=== PATIENT | female | born 1985 | race Asian ===

== ENCOUNTER 2017-02-06 15:57 | Inpatient (IN) | payer BC ==
[~2017-02-06] VITALS: Ht 160 cm; Wt 54.0 kg
[2017-02-06 16:48] LABS: BASOPHIL % 0.4 % (0-2); RED CELL DISTRIBUTION WIDTH 12.5 % (11.5-14.5)
[2017-02-06 16:49] LABS: CALCIUM 9.2 mg/dL (8.5-10.1); CARBON DIOXIDE 22.4 mmol/L (21-32); CHLORIDE SERUM 101 mmol/L (98-107); CREATININE SERUM 0.8 mg/dL (0.6-1.0); GFR1 > 60 mL/min; GLUCOSE SERUM 91 mg/dL (74-106); PLATELET COUNT 433 x10^3mcL (130-400); POTASSIUM SERUM 3.6 mmol/L (3.5-5.1); SODIUM SERUM 139 mmol/L (136-145)
[2017-02-06] MEDS ORDERED: PRENATAL LOW IR1 TA1 PO (23:14)
[2017-02-07 01:01] LABS: CHOLESTEROL/HDL RATIO 3.3; MAGNESIUM 1.8 mg/dL (1.8-2.4); PHOSPHOROUS 2.4 mg/dL (2.5-4.9)
[2017-02-07 01:09] LABS: FREE T4 1.11 ng/dL (0.76-1.46); T4(THYROXINE) 9.6 ug/dL (4.7-13.3)
[2017-02-07 01:11] LABS: T3 TOTAL 1.15 ng/mL
[2017-02-07 05:00] LABS: BASOPHIL % 0.9 % (0-2); PLATELET COUNT 307 x10^3mcL (130-400); RED CELL DISTRIBUTION WIDTH 12.6 % (11.5-14.5)
[2017-02-07 05:17] LABS: CALCIUM 8.3 mg/dL (8.5-10.1); CARBON DIOXIDE 24.1 mmol/L (21-32); CHLORIDE SERUM 109 mmol/L (98-107); CREATININE SERUM 0.8 mg/dL (0.6-1.0); GFR1 > 60 mL/min; GLUCOSE SERUM 90 mg/dL (74-106); PHOSPHOROUS 3.6 mg/dL (2.5-4.9); POTASSIUM SERUM 3.7 mmol/L (3.5-5.1); SODIUM SERUM 142 mmol/L (136-145)
[2017-02-07 06:54] VITALS: BP 107/66
[2017-02-07 08:25] VITALS: BP 104/59
[2017-02-07 12:40] VITALS: BP 114/66
[2017-02-07 13:31] LABS: APPEARANCE CSF CLEAR; COLOR CSF COLORLESS; RBC CSF 3 /cumm (0); WBC CSF 16 /cumm (0-5)
[2017-02-07 13:32] LABS: LYMPHOCYTE CSF 96 % (40-80); MONOCYTE CSF 1 %; TOTAL PROTEIN CSF 51.1 mg/dL (15-45)
[2017-02-07 13:34] LABS: APPEARANCE CSF CLEAR; COLOR CSF COLORLESS; LYMPHOCYTE CSF 96 % (40-80); RBC CSF 3 /cumm (0); WBC CSF 10 /cumm (0-5)
[2017-02-07 13:35] LABS: MONOCYTE CSF 1 %
[2017-02-07 13:35] LABS: UA SPECIFIC GRAVITY 1.015 (1.005-1.035)
[2017-02-07 13:36] LABS: microscopic required? YES; urine erythrocyte NEGATIVE (NEGATIVE)
[2017-02-07 13:39] LABS: TOTAL PROTEIN, SERUM 8.9 g/dL (6.4-8.2)
[2017-02-07 13:40] LABS: ALBUMIN 3.9 g/dL (3.4-5.0); ALKALINE PHOSPHATASE 114 U/L (46-116); ALT/SGPT 39 U/L (14-59); AST/SGOT 37 U/L (15-37); BILIRUBIN TOTAL 0.42 mg/dL (0.20-1.00)
[2017-02-07 17:45] VITALS: BP 127/67
[2017-02-07 18:12] VITALS: BP 127/67
[2017-02-07 21:54] VITALS: BP 122/68
[2017-02-08 06:08] VITALS: BP 110/70
[2017-02-08 07:45] LABS: BASOPHIL % 0.3 % (0-2); PLATELET COUNT 297 x10^3mcL (130-400); RED CELL DISTRIBUTION WIDTH 12.1 % (11.5-14.5)
[2017-02-08 08:00] LABS: CALCIUM 8.1 mg/dL (8.5-10.1); CARBON DIOXIDE 18.8 mmol/L (21-32); CHLORIDE SERUM 106 mmol/L (98-107); CREATININE SERUM 0.7 mg/dL (0.6-1.0); GFR1 > 60 mL/min; GLUCOSE SERUM 76 mg/dL (74-106); SODIUM SERUM 137 mmol/L (136-145)
[2017-02-08 09:56] VITALS: BP 114/73
[2017-02-08 13:51] VITALS: BP 110/76
[2017-02-08 17:50] VITALS: BP 118/78
[2017-02-08 21:19] VITALS: BP 129/71
[2017-02-09 05:45] VITALS: BP 133/69
[2017-02-09 06:36] LABS: CALCIUM 8.5 mg/dL (8.5-10.1); CARBON DIOXIDE 21.1 mmol/L (21-32); CHLORIDE SERUM 105 mmol/L (98-107); CREATININE SERUM 0.7 mg/dL (0.6-1.0); GFR1 > 60 mL/min; GLUCOSE SERUM 83 mg/dL (74-106); POTASSIUM SERUM 3.7 mmol/L (3.5-5.1); SODIUM SERUM 138 mmol/L (136-145)
[2017-02-09 07:05] LABS: BASOPHIL % 0.4 % (0-2); PLATELET COUNT 324 x10^3mcL (130-400); RED CELL DISTRIBUTION WIDTH 12.6 % (11.5-14.5)
[2017-02-09 10:13] VITALS: BP 122/65
[2017-02-09 13:48] VITALS: BP 125/77
[2017-02-09 18:37] VITALS: BP 126/80
[2017-02-09 22:05] VITALS: BP 132/80
[2017-02-10 05:36] VITALS: BP 106/66
[2017-02-10 06:43] LABS: BASOPHIL % 0.7 % (0-2); PLATELET COUNT 312 x10^3mcL (130-400); RED CELL DISTRIBUTION WIDTH 12.6 % (11.5-14.5)
[2017-02-10 07:02] LABS: CALCIUM 8.2 mg/dL (8.5-10.1); CARBON DIOXIDE 24.5 mmol/L (21-32); CHLORIDE SERUM 108 mmol/L (98-107); CREATININE SERUM 0.7 mg/dL (0.6-1.0); GFR1 > 60 mL/min; GLUCOSE SERUM 84 mg/dL (74-106); MAGNESIUM 1.8 mg/dL (1.8-2.4); PHOSPHOROUS 3.6 mg/dL (2.5-4.9); POTASSIUM SERUM 3.7 mmol/L (3.5-5.1); SODIUM SERUM 140 mmol/L (136-145)
[2017-02-10 10:00] VITALS: BP 107/69
[2017-02-10] MEDS ORDERED: MOT400 PO (12:58)
[2017-02-10 13:22] VITALS: BP 107/69
[2017-02-10 13:23] VITALS: BP 107/69
== END 2017-02-10 17:21 | disposition home or self-care (01) | DRG 75 ==
LOC: ED 15:57 → DU 19:53 → MU 19:53 → DU 02-07 00:05 → MU 02-09 08:58
PROVIDERS: Emergency Medicine; Family Medicine; ADMIT Family Medicine
DX: A87.9 Viral meningitis, unspecified (principal); N17.0 Acute kidney failure with tubular necrosis; Z88.2 Allergy status to sulfonamides; Z88.8 Allergy status to other drugs, medicaments and biological substances; Z83.3 Family history of diabetes mellitus; Z82.49 Family history of ischemic heart disease and other diseases of the circulatory system; E83.39 Other disorders of phosphorus metabolism; E78.5 Hyperlipidemia, unspecified; R73.03 Prediabetes; D64.9 Anemia, unspecified
CPT/HCPCS: 82962; 83880; 84439; 86788; 86789; J0696; J1885; J2270; J2405; J7030